=== PATIENT | female | born 1970 | race Caucasian/White ===

== ENCOUNTER → 2023-12-27 | Outpatient (CLI) | payer MEDICAID ==
[~2023-12-27] VITALS: Ht 160 cm; Wt 145.1 kg
[2023-12-27] MEDS: REGADENOSON 0.4 MG/5 ML SYRG IV ONE ×2 (09:17→09:18)
== END | disposition home or self-care (01) ==
LOC: XYW 07:45
PROVIDERS: ATTEND Internal Medicine
DX: I34.0 Nonrheumatic mitral (valve) insufficiency (principal); I10 Essential (primary) hypertension
CPT/HCPCS: 78452; 93017; A9500; J2785

== ENCOUNTER 2024-09-28 21:38 | Emergency (ER) | payer MEDICAID ==
[~2024-09-28] VITALS: Ht 160 cm; Wt 140.9 kg
[2024-09-28 21:40] VITALS: BP 141/98; PULSE 92; RESP 18; TEMP 97.8; O2SAT 95
--- NOTE | 2024-09-28 22:39 | DVH ---
CLINICAL INDICATION: Pain TECHNIQUE: 3 views XY R FOOT 3 VIEW XRAY Comparison: None FINDINGS/IMPRESSION: : No acute fracture or joint malalignment. Normal osseous mineralization. No significant degenerative changes. Diffuse nonfocal soft tissue prominence.
--- NOTE | 2024-09-29 00:45 | ED.PDOC ---
Back pain HPI HPI Comments Pt c/o right foot pain since last night. Pt says she put too much weight on foot and heard "several snaps". No obvious deformity noted. Rates pain /, pt took percocet for pain with some relief. Denies numbness, weakness, swelling of the ankle or any ankle pain. Chief Complaint: Lower Extremity Time Seen by MD: 21:52 Reviewed Notes: Nurses Notes, Medications, Allergies Allergies: Coded Allergies: Morphine (Verified Allergy, Unknown, 12/27/23) Penicillins (Verified Allergy, Unknown, 12/27/23) Information Source: Patient Mode of Arrival: Wheelchair Past Medical History PAST MEDICAL HISTORY: Denies Surgical History: Denies all surgeries PHOTO GRAPHICS LIBRARIAN History: No Pertinent PHOTO GRAPHICS LIBRARIAN History Family History Family History: Reviewed,noncontributory to illness Social History Smoker: Non-Smoker Alcohol: Denies ETOH Use Drugs: Denies Drug Use Constitutional: denies: chills, diaphoresis, fatigue, fever, malaise, sweats, weakness, others EENTM: denies: blurred vision, double vision, ear bleeding, ear discharge, ear drainage, ear pain, ear ringing, eye pain, eye redness, hearing loss, mouth pain, mouth swelling, nasal discharge, nose bleeding, nose congestion, nose pain, photophobia, tearing, throat pain, throat swelling, voice changes, others Respiratory: denies: cough, hemoptysis, orthopnea, SOB at rest, shortness of breath, SOB with excertion, stridor, wheezing, others Cardiovascular: denies: chest pain, dizzy spells, diaphoresis, Dyspnea on exertion, edema, irregular heart beat, left arm pain, lightheadedness, palpitations, PND, syncope, others Gastrointestinal: denies: abdomen distended, abdominal pain, blood streaked bowels, constipated, diarrhea, dysphagia, difficulty swallowing, hematemesis, melena, nausea, poor appetite, poor fluid intake, rectal bleeding, rectal pain, vomiting, others Genitourinary: denies: abnormal vagina bleeding, burning, dyspareunia, dysuria, flank pain, frequency, hematuria, incontinence, pain, , vagina discharge, urgency, others Neurological: denies: dizziness, fainting, headache, left sided numbness, left sided weakness, numbness, paresthesia, pre-existing deficit, right sided numbnes s, right sided weakness, seizure, speech problems, tingling, tremors, weakness, others Musculoskeletal: reports: others (right foot pain ); denies: back pain, gout, joint pain, joint swelling, muscle pain, muscle stiffness, neck pain Integumetry: denies: bruises, change in color, change in hair/nails, dryness, laceration, lesions, lumps, rash, wounds, others Allergic/Immunocompromised: denies: Difficulty Healing, Frequent Infections, Hives, Itching, others Hematologic/Lymphatic: denies: anemia, blood clots, easy bleeding, easy bruising, swollen glands, others Endocrine: denies: excessive hunger, excessive sweating, excessive thirst, excessive urination, flushing, intolerance to cold, intolerance to heat, unexplained weight gain, unexplained weight loss, others Psychiatric: denies: anxiety, bipolar disorder, depression, hopeless, panic disorder, schizophrenia, sleepless, suicidal, others Physical Exam General Appearance: No Apparent Distress, Normal HEENT: Pharynx Normal Neck: Full Range of Motion Respiratory: Lungs Clear, No Respiratory Distress, Normal Breath Sounds Cardiovascular: No Murmur, Normal Peripheral Pulses, Regular Rate/Rhythm Breast Exam: Deferred Gastrointestinal: Non Tender, Soft Genitalia: Deferred Pelvic: Deferred Rectal: Deferred Extremities: Normal capillary refill, Normal range of motion, No pedal edema Musculoskeletal : Location: Right Extremity Location: Foot (Moderate tenderness palpated bottom of right foot fascia. No noted edema no noted ankle and edema or tenderness strength sensory motion intact positive pedal pulse) Apperance: Normal Neurologic: Alert, No Motor Deficits, Normal Affect, Normal Mood, No Sensory Deficits Cerebellar Function: Normal Reflexes: Normal Skin: Dry, Normal Color, Warm Lymphatic: No Adenopathy Was a procedure done? Was a procedure done?: No Back Pain Differential Dx Differential Diagnosis: Fracture, Musculoskeletal Pain, Strain X-Ray, Labs, Meds, VS Vital Signs Date Time Temp Pulse Resp B/P (MAP) Pulse Ox O2 Delivery O2 Flow Rate FiO2 09/28/24 21:40 97.8 92 18 141/98 95 97.8 Time of 1ST Reevaluation: 00:15 Reevaluation 1ST: Unchanged Time of 2ND Reevaluation: 00:48 Reevaluation 2ND: Improved Patient Education/Counseling: Diagnosis, Treatment, Prognosis, Need For Follow Up Family Education/Counseling: Diagnosis, Treatment, Prognosis, Need For Follow Up SEPSIS Sepsis Screen Date sepsis recognized/suspect: Sep 28, 2024 Time Sepsis recognized/suspect: 2142 Recent Procedure: No On Antibiotic Therapy: No Respiratory Rate >20: No Heart Rate >90: Yes Temp<36 C (96.8 F) or >38.3 C: No SBP <90 or MAP <65 mmHG: No New Acute Mental Status Change: No Is the patient on CPAP, BIPAP,: No Physician Orders R Foot 3 View Xray (09/28/24 21:45) Vital Signs Date Time Temp Pulse Resp B/P (MAP) Pulse Ox O2 Delivery O2 Flow Rate FiO2 09/28/24 21:40 97.8 92 18 141/98 95 97.8 Departure 1 Departure Time of Disposition: 00:48 Impression: Primary Impression: Rupture of plantar fascia of right foot Qualified Codes: S93.691A - Other sprain of right foot, initial encounter e-Prescriptions Nabumetone (Nabumetone) 500 Mg Tab 1 TAB PO BID PRN for 10 Days, #20 TAB Start medication after completing Medrol Dosepak if needed Prov: JOLENE IBARRA 09/29/24 Methylprednisolone (Medrol Dosepak) 4 Mg Luis 4 MG PO UD for 6 Days, #21 TAB UAD Prov: JOLENE IBARRA 09/29/24 Discharged With: Relative (Sibling) Critical Care Note Critical Care Time?: No Stability Stability form required: No JOLENE IBARRA Sep 29, 2024 00:45
[2024-09-29] MEDS ORDERED: NABU-72 PO (00:52)
[2024-09-29] MEDS ORDERED: METH4PAK PO (00:52)
[2024-09-29] MEDS: KETOROLAC TROMETH 60MG/2ML VIAL IM ONE (00:58)
== END 2024-09-29 01:11 | disposition home or self-care (01) ==
LOC: ER 21:38
DX: S96.811A Strain of other specified muscles and tendons at ankle and foot level, right foot, initial encounter (principal); Z88.5 Allergy status to narcotic agent; Z88.0 Allergy status to penicillin; X50.9XXA Other and unspecified overexertion or strenuous movements or postures, initial encounter; Y93.89 Activity, other specified; Y92.89 Other specified places as the place of occurrence of the external cause; Y99.8 Other external cause status
CPT/HCPCS: 73630; 96372; 99283; J1885